=== PATIENT | male | born 1940 | race Asian ===

== ENCOUNTER 2016-02-21 13:47 | Inpatient (IN) | payer OTHER ==
[~2016-02-21] VITALS: Ht 182.9 cm; Wt 81.6 kg
[~2016-02-21 13:47] MED LIST: ALBUTEROL0.09 MG/A1 INH; ALLERGY10 MG PO; B12 1MG PE1000 MCG/M IM; BACTRIM 400 MG-1 TAB PO; PREDNISONE 20MG20 MG PO; TESSALON PERLE100 MG PO; TYLENOL500 MG PO; ZITHROMAX Z-PA250 M1 PO
--- NOTE | 2016-02-21 14:02 | ED HEADACHE COMPLAINT ---
History of Present Illness General Chief Complaint: Dizziness Stated Complaint: DIZZY,BLURRY VISION Source: patient, family, old records, seat covers trimmer Exam Limitations: language barrier Vital Signs & Intake/Output Vital Signs & Intake/Output Vital Signs Date Time Temp Pulse Resp B/P Pulse O2 O2 Flow FiO2 Ox Delivery Rate 02/22 0827 97.5 58 18 120/80 97 Room Air 02/21 2314 98.2 62 18 110/58 96 Room Air 02/21 1538 98.1 62 20 116/74 96 Room Air ED Intake and Output 02/22 0000 02/21 1200 Intake Total 1180 60 Output Total Balance 1180 60 Intake, IV 10 Intake, Oral 1180 50 Allergies Coded Allergies: Penicillins (DIZZY, VOMITING 02/21/16) aspirin (GI UPSET 02/21/16) Triage Note: 75 Y/O MALE C/O INTERMITTENT HEADACHE, "PRESSURE", X 3 DAYS. STATES IT FEELS LIKE SOMEONE IS "MASSAGING" HIS HEAD. DENIES OTHER COMPLAINTS. STATES HE HAS HAD PERIODS OF "SWEATING" IN ARMS AND LEGS WELL. SPEAKING CLEARLY WITH NO DEFICIT OR DISTRESS NOTED. Triage Nurses Notes Reviewed? yes Onset: Abrupt Duration: day(s): (3), intermittent HPI: 75-year-old gentleman presents emergency room complaining of a three-day history of intermittent generalized headache described as a pressure associated with room spinning dizziness. He has not taken anything for his headache and denies any symptoms at this time. The pain and episodes of this month randomly is not worse with exertion or rest. He states that his vision has been blurry during the episodes however denies any episodes of vision loss. No nausea vomiting difficulty speaking he denies any weakness in his arms or legs no numbness or tingling. There's been no change in his mental status per family. Denies any associated chest pain palpitation shortness breath abdominal pain. (AZRA RYAN,KAYLI) Reconcile Medications Atorvastatin Calcium 40 MG TABLET 1 TAB PO DAILY heart health Clopidogrel Bisulfate (Plavix) 75 MG TABLET 1 TAB PO DAILY heart health Meclizine HCl 25 MG TABLET 1 TAB PO TID PRN VERTIGO Naproxen 500 MG TABLET 1 TAB PO BID PAIN (Reported) Pantoprazole Sodium 40 MG TABLET.DR 1 TAB PO DAILY GERD (Reported) Prednisone 20 MG TAB 2 TAB PO DAILY BRONCHITIS (DONALD JIMENEZ,FIDELINA) Past History Travel History Traveled to [place] past 21 day No Medical History Any Pertinent Medical History? 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 No (KAYLI ACKERMAN) Review of Systems Review of Systems Constitutional: Reports: see HPI. All Other Systems: Reviewed and Negative Comments Review of systems: See HPI, All other systems negative. Constitutional, no chills no fever, no malaise HEENT: No visual changes no sore throat no congestion, no ear pain Cardiovascular: No chest pain , no palpitation , no orthopnea Skin, no jaundice no rashes, no change in skin Respiratory: No dyspnea no cough no sputum GI: No nausea no vomiting, no diarrhea, : No dysuria No hematuria, Muscle skeletal: No joint pain, no joint swelling, no back pain, no neck pain, Neurologic: No numbness no confusion, headache Psych: No stress no anxiety no depression,. Heme/endocrine: No bruising no bleeding Immunology: No lymphadenopathy (KAYLI ACKERMAN) Physical Exam Physical Exam General Appearance: well developed/nourished, no apparent distress, alert, awake , comfortable Psychiatric: awake, alert, oriented x 3 Cranial Nerves: normal hearing, normal speech, PERRL Coordination/Gait: normal finger to nose, normal gait Motor/Sensory: no motor/sensory deficits Reflexes: 2+: tricep (R), tricep (L). Comments: Well-developed well-nourished person in no acute distress HEENT: Normal EENT exam; PERRL, EOMI, HEAD is atraumatic. moist mucous membranes. Neck: Supple, no bruit, normal range of motion Back: Nontender, no CVA tenderness. Full range of motion Cardiovascular: Regular rate and rhythms no murmurs rubs Respiratory: Chest nontender.There were no bony deformities, no asymmetry. No respiratory distress. Patient speaking in full complete sentences. Breath sounds clear to auscultation bilaterally: NO W/R/R Abdomen: Soft, nontender nondistended, no appreciable organomegaly. Normal bowel sounds. No rebound/guarding, Extremity: No edema, full range of motion of extremities Neuro: Alert oriented x3, motor sensory normal, cranial nerves II through XII grossly intact. There were no obvious focal neurologic abnormalities. Skin: No appreciable rash on exposed skin, skin is warm and dry. Psych: Mood and affect is normal, memory and judgment is normal. Core Measures Severe Sepsis Present: No Septic Shock Present: No (KAYLI ACKERMAN) Progress Differential Diagnosis: carotid dissection, encephalitis, IC mass/tumor, intracranial Hem., meningitis, migraine MOORE, musculoskeletal pain, subarach. Hem. , tension MOORE, vertigo, electrolyte abnormality Plan of Care: Orders Procedure Date/time Status Change service to 02/22 0953 Active Patient Data 02/22 0937 Active THYROID STIMULATING HORMONE 02/22 0650 Complete FREE T4 02/22 0650 Complete MAGNESIUM 02/22 06 Complete CBC WITHOUT DIFFERENTIAL 02/22 06 Complete BASIC ELECTROLYTES PLUS BUN&CR 02/22 0600 Complete Change service to 02/22 UNK Active Lab Add-on Test 02/22 UNK Active Telemetry/Full Stack Engineer 02/22 UNK Active MRI-HEAD W & W/O ALIVIA 02/22 UNK Active Laboratory Tests 02/23/16 0650: Anion Gap 10, Estimated GFR > 60, BUN/Creatinine Ratio 17.8, Magnesium 1.8, TSH 2.890, Free T4 1.34, CBC w Diff NO MAN DIFF REQ, RBC 4.47 L, MCV 90.7, MCH 30.8 , RDW 14.4, MPV 8.2, Gran % 60.3, Lymphocytes % 29.4, Monocytes % 7.7, Eosinophils % 2.0, Basophils % 0.6, Absolute Granulocytes 3.3, Absolute Lymphocytes 1.6, Absolute Monocytes 0.4, Absolute Eosinophils 0.1, Absolute Basophils 0, PUBS MCHC 33.9 Labs ordered CAT scan ordered old records reviewed. Discussed with the patient his CAT scan results. Swallow eval was performed by me. The patient tolerated and passed exam well without any difficulties. I answered all of the patient and his family's questions CASE D/W DR REINA WILL ADMIT TO TELE, CALL PLACED TO NEURO (KAYLI ACKERMAN) Diagnostic Imaging: Viewed by Me: CT Scan. Discussed w/RAD: CT Scan. Radiology Impression: PATIENT: ADELE MARTINEZ PRESENT AGE: 75 PATIENT ACCOUNT NO: [id number] : 41 LOCATION: [facility] ORDERING PHYSICIAN: KAYLI RYAN SERVICE DATE: 02/21/16 EXAM TYPE: CAT - CT HEAD WO IV CONTRAST EXAMINATION: CT HEAD WITHOUT CONTRAST CLINICAL INFORMATION: Dizziness and headache. COMPARISON: Noncontrast head CT 02/06/2014. TECHNIQUE: Contiguous axial imaging was performed from the skull base to vertex without intravenous administration of contrast. DLP: 529 mGy-cm. FINDINGS: Noncontrast CT imaging of the brain is notable for a focal region of hypoattenuation within the midbrain measuring approximately 1.0 x 1.2 cm in AP and transverse dimensions respectively (series 2, image 17). There is no acute intracranial hemorrhage, mass or mass effect or abnormal extra-axial fluid collections. The density within the dural venous sinuses is within normal limits. The ventricles are normal in size, without hydrocephalus. The basilar cisterns are patent. No acute calvarial abnormality is identified. Soft tissues appear unremarkable. The imaged paranasal sinuses and mastoid air cells are well aerated. IMPRESSION: A 1.0 x 1.2 cm focal region of hypoattenuation within the midbrain, suspicious for age-indeterminate ischemia. Otherwise, no acute intracranial hemorrhage, mass or mass effect or abnormal extra-axial fluid collections. This critical result was discussed with Dr. Kayli Prado at 3:21 PM on 02/21/2016 and it was ascertained that the content and urgency of the report was understood at the time of direct communication. DICTATED BY: LAVELL PEDERSEN MD DATE/TIME DICTATED:02/21/161513 COMBINER OPERATOR:AMANDO DATE/TIME TRANSCRIBED:02/21/161513 CONFIDENTIAL, DO NOT COPY WITHOUT APPROPRIATE AUTHORIZATION. <Electronically signed in Other Vendor System> SIGNED BY: LAVELL PEDERSEN MD 02/21/16 1532 Initial ED EKG: normal intervals, normal p-waves, normal QRS complex, normal sinus rhythm (70) Prior EKG: unchanged (01/2014) (AZRA RYAN,KAYLI) Departure Departure Time of Disposition: 1547 Disposition: STILL A PATIENT Condition: Stable Clinical Impression Primary Impression: CVA (cerebral vascular accident) Referrals: [employer]WORK SECURITY ARCHITECT,ANGIE (PCP/Family) Referred to [facility] as new patient No Departure Forms: Customer Survey General Discharge Information Admission Note Spoke With: ELLIOT REINA M.D Documentation of Exam: Documentation of any treatments & extenuating circumstances including Concerns Regarding Discharge (functional status, medication knowledge or non-compliance, living conditions, etc.) that warrant an admission rather than observation MRI neurology consult trend labs. Premature discharge ready medically harmful (KAYLI ACKERMAN) Departure Prescriptions: Current Visit Scripts Atorvastatin Calcium 1 TAB PO DAILY #30 Clopidogrel Bisulfate (Plavix) 1 TAB PO DAILY #30 Meclizine HCl 1 TAB PO TID PRN VERTIGO #30 PA/ORDER DESK CLERK Co-Sign Statement Statement: ED Attending supervision documentation- [X] I saw and evaluated the patient. I have also reviewed all the pertinent lab results and diagnostic results. I agree with the findings and the plan of care as documented in the PA's/ORDER DESK CLERK's documentation. [X] I have reviewed the ED Record and agree with the PA's/ORDER DESK CLERK's documentation. [] Additions or exceptions (if any) to the PAs/ORDER DESK CLERK's note and plan are summarized below: [] (DONALD JIMENEZ,FIDELINA)
[2016-02-21 14:53] LABS: ABSOLUTE BASOPHIL COUNT 0 /CUMM (0.0-0.2); ABSOLUTE EOSINOPHIL COUNT 0.1 /CUMM (0.0-0.7); ABSOLUTE LYMPH COUNT 1.4 /CUMM (1.2-3.4); ABSOLUTE MONOCYTE COUNT 0.3 /CUMM (0.10-0.60); BASOPHIL % 0.3 % (0.0-2.0); EOSINOPHIL % 1.4 % (0-5); HEMATOCRIT 39.8 % (42-52); MEAN CORPUSCULAR HGB 30.9 PG (27.0-31.0); MEAN CORPUSCULAR HGB CONC 33.8 G/DL (33.0-37.0); MEAN CORPUSCULAR VOLUME 91.4 FL (80.0-94.0); MEAN PLATELET VOLUME 7.8 FL (7.4-10.4); PLATELET COUNT 223 /CUMM (130-400); RBC DISTRIBUTION WIDTH 14.3 % (11.5-14.5); RED BLOOD CELL CT 4.36 /CUMM (4.70-6.10); WHITE BLOOD CELL COUNT 5.8 /CUMM (4.8-10.8)
[2016-02-21] MEDS ORDERED: MECLIZINE HCL25 MG PO (15:08)
--- NOTE | 2016-02-21 15:32 | CT SCAN REPORT ---
EXAMINATION: CT HEAD WITHOUT CONTRAST CLINICAL INFORMATION: Dizziness and headache. COMPARISON: Noncontrast head CT 02/06/2014. TECHNIQUE: Contiguous axial imaging was performed from the skull base to vertex without intravenous administration of contrast. DLP: 529 mGy-cm. FINDINGS: Noncontrast CT imaging of the brain is notable for a focal region of hypoattenuation within the midbrain measuring approximately 1.0 x 1.2 cm in AP and transverse dimensions respectively (series 2, image 17). There is no acute intracranial hemorrhage, mass or mass effect or abnormal extra-axial fluid collections. The density within the dural venous sinuses is within normal limits. The ventricles are normal in size, without hydrocephalus. The basilar cisterns are patent. No acute calvarial abnormality is identified. Soft tissues appear unremarkable. The imaged paranasal sinuses and mastoid air cells are well aerated. IMPRESSION: A 1.0 x 1.2 cm focal region of hypoattenuation within the midbrain, suspicious for age-indeterminate ischemia. Otherwise, no acute intracranial hemorrhage, mass or mass effect or abnormal extra-axial fluid collections. This critical result was discussed with Dr. Randy Prado at 3:21 PM on 02/21/2016 and it was ascertained that the content and urgency of the report was understood at the time of direct communication.
[2016-02-21] MEDS ORDERED: NAPROXEN500 M2 PO (16:46)
[2016-02-21] MEDS ORDERED: PANTOPRAZOLE SO40 M1 PO (16:46)
--- NOTE | 2016-02-21 17:04 | History & Physical ---
HUGO ROJAS 02/21/16 1703: General Information and HPI MD Statement: I have seen and personally examined ADELE MARTINEZ and documented this H&P. The patient is a 75 year old M who presented with a patient stated chief complaint of dizziness, blurred vision and intermittent headache for 3 days Source of Information: patient, family Exam Limitations: no limitations History of Present Illness: This is a 75-year-old gentleman with past medical history significant for paroxysmal atrial fibrillation, dyslipidemia, hyperthyroidism, GERD presented to the [facility] emergency department with chief complaint of dizziness, blurred vision, intermittent headache for 3 days. According to the patient, he started having intermittent headaches for 3 days, mostly occipital region, 8/10, tingling like, nonradiating. He didn't take any medications for headache at home. Denied any migraine history in the past, weakness, sensory changes, numbness, gait changes, swallowing changes. He does report dizziness for 3 days. He feels like room is spinning around him. Not associated with any nausea, vomiting, sweating, loss of consciousness, syncopal episodes. Denied any focal neurological deficits. No loss of balance. No hearing difficulty or ringing sensation. No blackout episodes. Ofnote dizziness is associated with blurred vision. Denied any fever, chills, chest pain, racing of heart, cough, sputum production, nausea, vomiting, abdominal pain, change in bladder or bowel habits. He denied any smoking history, according to, illicit drug abuse. Denied any history of stroke or heart attack in the past. No significant family history. He follows Dr. Rutledge's primary care doctor and it investment/portfolio manager at [facility]. Of note he was admitted at [facility] in 2007 for abdominal pain. He was found to be in atrial fibrillation, he was given metoprolol and anticoagulation and later medications were discontinued by the it investment/portfolio manager once he was in sinus rhythm. Not on any rate controlling agents and not on anticoagulants Allergies/Medications Allergies: Coded Allergies: Penicillins (DIZZY, VOMITING 02/21/16) aspirin (GI UPSET 02/21/16) Home Med list Naproxen 500 MG TABLET 1 TAB PO BID PAIN (Reported) Pantoprazole Sodium 40 MG TABLET.DR 1 TAB PO DAILY GERD (Reported) Prednisone 20 MG TAB 2 TAB PO DAILY BRONCHITIS Compliance With Home Meds: GOOD Past History Travel History Traveled to [place] past 21 day No Medical History Neurological: NONE EENT: NONE Cardiovascular: DIZZINESS Respiratory: NONE Gastrointestinal: NONE Hepatic: NONE Renal: NONE Musculoskeletal: NONE Psychiatric: NONE Endocrine: NONE Blood Disorders: ELEVATED CHOLESTEROL Cancer(s): NONE 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 EENTM: Reports: blurred vision. Denies: double vision, visual changes, ear pain, hearing changes. Cardiovascular: Denies: chest pain, edema, orthopena, palpitations, peripheral edema, syncope. Respiratory: Denies: cough, hemoptysis, orthopnea, short of breath, sputum production, stridor, wheezing. GI: Denies: abdominal pain, constipation, diarrhea, changes in stool, vomiting. Genitourinary: Denies: frequency, hematuria, hesitation. Musculoskeletal: Denies: back pain, joint pain. Neurological/Psychological: Reports: headache. Denies: anxiety, ataxia, confusion, depressed, dementia, emotional problems, numbness, tingling, tremors, weakness. Exam & Diagnostic Data Last 24 Hrs of Vital Signs/I&O Vital Signs Date Time Temp Pulse Resp B/P Pulse O2 O2 Flow FiO2 Ox Delivery Rate 02/20 1730 98.1 63 20 158/86 99 Room Air 02/20 1657 72 18 144/80 97 Room Air 02/20 1547 66 16 170/84 100 Room Air 02/20 1354 97.6 82 18 149/95 98 Room Air Intake & Output 02/20 1600 02/20 0800 02/20 0000 Intake Total 0 Output Total Balance 0 Intake, Oral 0 Patient 81.647 kg Weight Physical Exam General Appearance Alert, Oriented X3, Cooperative, No Acute Distress Skin No Rashes, No Breakdown HEENT Atraumatic, PERRLA, EOMI, Mucous Membr. moist/pink Neck Supple, No JVD Lymphatic Cervical nl Cardiovascular Regular Rate, Normal S1, Normal S2, No Murmurs Lungs Clear to Auscultation, Normal Air Movement Abdomen Normal Bowel Sounds, Soft, No Tenderness Neurological Normal Gait, Normal Speech, Strength at 5/5 X4 Ext, Normal Tone, Sensation Intact, Cranial Nerves 3-12 NL, Reflexes 2+ Extremities No Clubbing, No Cyanosis, No Edema Vascular Normal Pulses Last 24 Hrs of Labs/Johnie: Laboratory Tests 02/21/16 1435: Anion Gap 11, Estimated GFR > 60, BUN/Creatinine Ratio 18.8, Glucose 122 H, Calcium 9.2, Total Bilirubin 0.8, AST 18, ALT 27, Alkaline Phosphatase 49, Troponin I < 0.01, Total Protein 7.1, Albumin 4.1, Globulin 3.0, Albumin/ Globulin Ratio 1.4, CBC w Diff NO MAN DIFF REQ, RBC 4.36 L, MCV 91.4, MCH 30.9, RDW 14.3, MPV 7.8, Gran % 69.0, Lymphocytes % 24.4, Monocytes % 4.9, Eosinophils % 1.4, Basophils % 0.3, Absolute Granulocytes 4.0, Absolute Lymphocytes 1.4, Absolute Monocytes 0.3, Absolute Eosinophils 0.1, Absolute Basophils 0, PUBS MCHC 33.8 Diagnostic Data EKG Results Sinus rhythm, rate 63, premature atrial complexes, QTC 394, no acute ST-T wave changes Other Results headc ct IMPRESSION: A 1.0 x 1.2 cm focal region of hypoattenuation within the midbrain, suspicious for age-indeterminate ischemia. Otherwise, no acute intracranial hemorrhage, mass or mass effect or abnormal extra-axial fluid collections. Assessment/Plan Assessment: This is a 75-year-old gentleman with past medical history significant for paroxysmal atrial fibrillation, dyslipidemia, hyperthyroidism, GERD presented to the [facility] emergency department with chief complaint of dizziness, blurred vision, intermittent headache for 3 days. Vitals on admission afebrile, heart rate 82, respiratory rate 18, blood pressure 149/95, saturating at 98% on room air. Pertinent labs CBC normal, BEP normal, troponins negative on admission. EKG sinus rhythm, rate 60, PACs, QTC 394, no ST-T wave changes head ct IMPRESSION: A 1.0 x 1.2 cm focal region of hypoattenuation within the midbrain, suspicious for age-indeterminate ischemia. Otherwise, no acute intracranial hemorrhage, mass or mass effect or abnormal extra-axial fluid collections. Problem list 1. Dizziness 2. Headache 3. GERD 4. History of paroxysmal atrial fibrillation Dizziness and headache Patient presented to emergency department with generalized headache mostly occipital for 3 days. He reported ongoing dizziness for 3 days associated with spinning sensation of the room. Denied loss of consciousness, syncopal episodes , seizures. CAT scan head showed midbrain ischemia. No acute intracranial hemorrhage or mass. Denied any focal neurologic deficits on examination * Admitted to telemetry for continuous monitoring * Monitor vitals closely * Maintain oxygen saturation above 92% * Frequent neuro checks * will Rule out TIA/stroke * Neurology was consulted * Patient was started on baby aspirin and statin therapy * Meclizine as necessary for dizziness * Fall precautions * Passed bedside swallow evaluation * Will follow neurology recommendation * HbA1c follow-up * May benefit from MRA brain * Continuous telemetry monitoring for any arrhythmias. * First set of troponin and EKG were negative * Serial EKG and troponins * Carotid Doppler ultrasound * Follow-up echocardiogram GERD Patient is on pantoprazole at home Patient is on naproxen Naproxen was discontinued here Paroxysmal atrial fibrillation Patient is in sinus rhythm Not on any home medications Not on anticoagulants Full code DVT prophylaxis with subcutaneous heparin Regular diet As Ranked By This Provider Problem List: 1. CVA (cerebral vascular accident) Core Measures/Miscellaneous Acute Coronary Syndrome ACS Diagnosis: No Cerebrovascular Accident CVA/TIA Diagnosis: No Congestive Heart Failure CHF Diagnosis: No Venous Thromboembolism VTE Risk Factors: Acute medical illness, Age > 40, No Risk Factors VTE Prophylaxis Ordered Inpt: Pharm- Heparin No Mech VTE prophylaxis d/t: No contraindications No VTE Pharm Prophylaxis d/t: No contraindications VTE Diagnosis: No VTE Type: NONE VTE Confirmed by (Test): NONE Severe Sepsis Severe Sepsis Present: No Septic Shock Septic Shock Present: No Miscellaneous Documentation Attending Case Discussed With: ELLIOT REINA M.D Primary Care Physician: ANGIE GARCIA APRN Patient sees these Specialists cardiology Level of Patient Care: Telemetry ELLIOT REINA MD 02/21/16 1734: Attending Review Statement Attending Statement Attending MD Statement: examined this patient, discuss w/resident/PA/FLAG CAR DRIVER, agreed w/resident/PA/FLAG CAR DRIVER, reviewed EMR data (avail), discussed with nursing, amended to note Attending Assessment/Plan: 75-year-old male with history of paroxysmal atrial fibrillation, thyroiditis, GERD presents to the emergency room with complaint of dizziness going on for the past 3 days. Symptoms are characterized as spinning sensation of his surroundings. Denies any hearing difficulty. Denies ringing sensation in the ears. Denies any falls. Symptoms began associated with headache so he came to the emergency room for evaluation. He is found hemodynamically stable. He had no deficits on arrival. CT of the head raises concern for an area of ischemia. She was referred to the inpatient service for further evaluation. On my examination I find no focal neurologic deficits. He has no nystagmus. Problems: 1. Dizziness and headache with CT scanning suggestive of midbrain ischemia 2. GERD 3. History of paroxysmal atrial fibrillation. He has been in sinus rhythm and is not on anticoagulation. Plan: -Recommend monitoring on the telemetry service. -If no arrhythmias on telemetry at the time of discharge would recommend implantable air sampling and monitoring as patient will benefit from anticoagulation therapy if his atrial fibrillation is again noted. -Obtain carotid Dopplers and echocardiogram. -Antiplatelet therapy with aspirin. Start patient on statin therapy. Check fasting lipid panel. -Continue meclizine. -Discontinue naproxen and recommend pain management with non NSAID therapy. -Neurology consultation. Patient may benefit from MRI of the brain for further evaluation of the area of ischemia noted on CT imaging. -DVT prophylaxis with heparin subcutaneous. MARIA DOLORES JIMENEZ,[facility] 02/21/16 1826: Resident Review Statement Resident Statement: examined this patient, discussed with equine internship, agreed with equine internship, discussed with family, reviewed EMR data (avail), discussed with nursing , discussed with case mgmt, reviewed images, amended to note Other Findings: This Is a 75-year-old man with a history of atrial fibrillation, thyroiditis and GERD as well as chronic pain on chronic therapy with naproxen who presented with complaints of dizziness and headache and found to have a CT that may be suggestive of midbrain ischemia. Monitor for 24 hours on continuous cardiac telemetry with neuro checks. We will obtain echocardiogram and carotid ultrasound, and expert consultation with neurology. Discontinue NSAIDs. DVT prophylaxis with Alps
[2016-02-21 17:30] VITALS: BP 158/86
[2016-02-22 00:27] VITALS: BP 100/60
[2016-02-22 08:00] VITALS: BP 110/60
--- NOTE | 2016-02-22 11:18 | PN- Att Addend ---
Attending Addendum Attending Brief Note Patient seen and examined. Resting comfortably not in acute distress. No events overnight on telemetry. He did have sinus bradycardia as low as 46 while asleep. Heart rate improved when awake. Patient reports feeling better this morning. He reports that his dizziness has markedly improved and he has mild headache. Denies any focal neurologic deficits. Vital Signs Date Time Temp Pulse Resp B/P Pulse O2 O2 Flow FiO2 Ox Delivery Rate 02/21 0800 98.0 54 20 110/60 95 Room Air 02/21 0027 99.0 56 20 100/60 96 Room Air 02/20 2153 Room Air 02/20 1730 98.1 63 20 158/86 99 Room Air 02/20 1657 72 18 144/80 97 Room Air 02/20 1547 66 16 170/84 100 Room Air 02/20 1354 97.6 82 18 149/95 98 Room Air Gen. appearance: Not in acute distress HEENT: Pupil equal and reactive. Extraocular muscles intact. No nystagmus. Heart: S1-S2 regular with no added sounds. Abdomen: Soft, nontender with normal bowel sounds Lungs: Good entry bilaterally with no added sounds. Extremities: No pedal edema Neurologic: No gross focal neurologic deficits Problems: 1. Dizziness and headache with CT scanning suggestive of midbrain ischemia 2. GERD 3. History of paroxysmal atrial fibrillation. He has been in sinus rhythm and is not on anticoagulation. Plan: -Follow-up with the neurology service regarding need for further neuroimaging. -Cardiology service referral for implantable case monitor. -Follow-up echocardiogram and carotid Dopplers. -Continue antiplatelet therapy restarting and statin lowering therapy -Continue meclizine as needed. Patient has not required any doses since admission. -Discharge planning once cleared by the neurology service. -DVT prophylaxis with subcutaneous heparin.
[2016-02-22 15:38] VITALS: BP 116/74
--- NOTE | 2016-02-22 15:49 | ULTRASOUND REPORT ---
EXAMINATION: US DUPLEX CAROTID AND VERTEBRAL CLINICAL INFORMATION: CVA. COMPARISON: None. TECHNIQUE: Real-time ultrasound and Doppler techniques (integrating B-mode 2D vascular images, Doppler spectral analysis and color flow Doppler imaging) were utilized to interrogate the extracranial carotid and vertebral arteries bilaterally. The degree of stenosis determined by criteria similar to NASCET. FINDINGS: The right common carotid artery is patent. There is mixed calcified and noncalcified plaque seen in the right carotid bulb and proximal ICA. Right ICA peak systolic velocity is 84 cm/s, end-diastolic velocity 23 cm/s suggestive of 0-49% right ICA stenosis. The right ECA is patent. Antegrade flow is seen in the right vertebral artery. The left common carotid artery is patent. There is heterogeneous calcified and noncalcified plaque seen in the left carotid bulb. Left ICA peak systolic velocity is 82 cm/s, end-diastolic velocity 29 cm/s suggestive of 0-49% left ICA stenosis. The left ECA is patent. Antegrade flow is seen in the left vertebral artery. IMPRESSION: 0-49% ICA stenosis bilaterally.
--- NOTE | 2016-02-22 17:07 | Cons- Neurology ---
General Information and HPI Consulting Request Date of Consult: 02/22/16 Requested By: ELLIOT REINA M.D Reason for Consult: ?TIA/CVA Source of Information: patient, family, EMR Exam Limitations: language barrier History of Present Illness: 75-year-old man who states he had several episodes of headache dizziness and blurred vision, along with tingling of the hands and feet, lasting several minutes, and several consecutive days. Gait was not impaired. No associated chest pain or palpitations. Remote history of paroxysmal atrial fibrillation back in 2007 per records. Briefly on anticoagulation at that time. Currently just takes a proton pump inhibitor and Naprosyn for arthralgias of the hands and feet at home. Is followed by a clinician at the [facility] clinic. This morning he had a dull headache which was relieved with Tylenol. Otherwise he has been feeling well walking around the hospital unit feeding himself and denying swallowing difficulties Allergies/Medications Allergies: Coded Allergies: Penicillins (DIZZY, VOMITING 02/21/16) aspirin (GI UPSET 02/21/16) Home Med List: Naproxen 500 MG TABLET 1 TAB PO BID PAIN (Reported) Pantoprazole Sodium 40 MG TABLET.DR 1 TAB PO DAILY GERD (Reported) Prednisone 20 MG TAB 2 TAB PO DAILY BRONCHITIS Current Medications: Current Medications Sig/Lissett Start time Last Medication Dose Route Stop Time Status Admin Acetaminophen 650 MG Q4P PRN 02/21 0915 AC 02/21 PO 0940 Aspirin 81 MG DAILY 02/20 2108 AC 02/21 PO 0757 Atorvastatin Calcium 40 MG DAILY@1700 02/20 2109 AC 02/21 PO 1556 Heparin Sodium 5,000 UNIT Q8 02/21 1400 AC 02/21 (Porcine) SC 1403 Magnesium Oxide 400 MG ONE ONE 02/21 1600 DC 02/21 PO 02/21 1601 1556 Meclizine HCl 25 MG TID PRN 02/20 1700 AC PO Review of Systems Review of Systems: REVIEW OF SYSTEMS: (-) = negative / normal blank = not discussed Neurologic: see HPI Eyes: see HPI ENT: (-) Constitutional: (-) CV: (-) Respiratory: (-) /Renal: (-) Musculoskeletal: Arthralgias of hands and feet Skin: (-) Psychiatric: (-) Heme: (-) GI: (-) Allergy/Immune: (-) Endocrine: (-) Other: (-) Past History Travel History Traveled to [place] past 21 day No Medical History Blood Transfusion Hx: No Neurological: NONE EENT: NONE Cardiovascular: AFIB, hyperlipidemia, DIZZINESS TACHYCARDIA Respiratory: NONE Gastrointestinal: NONE Hepatic: NONE Renal: NONE Musculoskeletal: NONE Psychiatric: NONE Endocrine: NONE Blood Disorders: NONE Cancer(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 Home Smoking Status: Never Smoked ETOH Use: denies use Illicit Drug Use: denies illicit drug use Employment History Employment: Employed Profession/Employer: works at [employer] in [place] Exam & Diagnostic Data Vital Signs and I&O Vital Signs Date Time Temp Pulse Resp B/P Pulse O2 O2 Flow FiO2 Ox Delivery Rate 02/21 1538 98.1 62 20 116/74 96 Room Air 02/21 0800 98.0 54 20 110/60 95 Room Air 02/21 0027 99.0 56 20 100/60 96 Room Air 02/20 2153 Room Air 02/20 1730 98.1 63 20 158/86 99 Room Air Intake & Output 02/21 1600 02/21 0800 02/21 0000 Intake Total 480 60 Output Total Balance 480 60 Intake, IV 10 Intake, Oral 480 50 Patient 180 lb Weight Physical Exam: PHYSICAL EXAMINATION: nl = normal NT or blank = not tested GENERAL Appearance: nl Head: nl Eyes: nl ENT: nl Neck: nl Carotids: nl Lungs: nl Heart: nl Extremities: nl Spine: nl NEUROLOGIC MENTAL STATUS Level of consciousness: nl Orientation: nl Attention / Concentration: nl Memory: nl Fund of Knowledge: nl Speech / Language: nl NEUROLOGIC CRANIAL NERVES I: Olfaction: NT II: Optic nerves: nl Visual mason: nl III: Pupils: nl Levator palpebrae: nl III, IV, : Ocular alignment: nl Extraocular motility: nl Pursuits/ saccades: nl V: Facial sensation: nl Masseter/Pterygoids: nl VII: Facial Motor: nl VIII: Hearing (finger rub): nl IX, X: Uvula and palate: nl XI: SCM, Upper trap.: nl XII: Tongue: nl MOTOR / NEUROMUSCULAR Bulk: nl Tone: nl Strength: nl Rapid alternating movements: nl Fine motor movements: nl Abnormal / involuntary movements: none CEREBELLAR / COORDINATION: intact SENSATION: intact to light touch, pin, vibration, joint position DTR's symmetrically trace to 1+ SOUZA'S: (-) PLANTARS: flexor GAIT: nl Last 48 Hours of Lab Results: Laboratory Tests 02/21 02/20 0600 1435 Chemistry Sodium (137 - 145 mmol/L) 138 138 Potassium (3.5 - 5.1 mmol/L) 4.3 4.5 Chloride (98 - 107 mmol/L) 102 98 Carbon Dioxide (22 - 30 mmol/L) 26 29 Anion Gap (5 - 16) 10 11 BUN (9 - 20 mg/dL) 15 15 Creatinine (0.7 - 1.2 mg/dL) 0.8 0.8 Estimated GFR (>60 ml/min) > 60 > 60 BUN/Creatinine Ratio (7 - 25 %) 18.8 18.8 Glucose (65 - 99 mg/dL) 122 H Calcium (8.4 - 10.2 mg/dL) 9.2 Magnesium (1.6 - 2.3 mg/dL) 1.9 Total Bilirubin (0.2 - 1.3 mg/dL) 0.8 AST (17 - 59 U/L) 18 ALT (21 - 72 U/L) 27 Alkaline Phosphatase (< 127 U/L) 49 Troponin I (<0.11 ng/ml) < 0.01 Total Protein (6.3 - 8.2 g/dL) 7.1 Albumin (3.5 - 5.0 g/dL) 4.1 Globulin (1.9 - 4.2 gm/dL) 3.0 Albumin/Globulin Ratio (1.1 - 2.2 %) 1.4 Triglycerides (<150 mg/dL) 144 Cholesterol (< 200 MG/DL) 191 LDL Cholesterol, Calc (65 - 129 mg/dL) 127 HDL Cholesterol (40 - 60 mg/dL) 36 L Cholesterol/HDL Ratio (0.00 - 4.88 %) 5 H Hematology CBC w Diff NO MAN DIFF REQ WBC (4.8 - 10.8 /CUMM) 5.8 RBC (4.70 - 6.10 /CUMM) 4.36 L Hgb (14.0 - 18.0 G/DL) 13.4 L Hct (42 - 52 %) 39.8 L MCV (80.0 - 94.0 FL) 91.4 MCH (27.0 - 31.0 PG) 30.9 RDW (11.5 - 14.5 %) 14.3 Plt Count (130 - 400 /CUMM) 223 MPV (7.4 - 10.4 FL) 7.8 Gran % (42.2 - 75.2 %) 69.0 Lymphocytes % (20.5 - 51.1 %) 24.4 Monocytes % (1.7 - 9.3 %) 4.9 Eosinophils % (0 - 5 %) 1.4 Basophils % (0.0 - 2.0 %) 0.3 Absolute Granulocytes (1.4 - 6.5 /CUMM) 4.0 Absolute Lymphocytes (1.2 - 3.4 /CUMM) 1.4 Absolute Monocytes (0.10 - 0.60 /CUMM) 0.3 Absolute Eosinophils (0.0 - 0.7 /CUMM) 0.1 Absolute Basophils (0.0 - 0.2 /CUMM) 0 PUBS MCHC (33.0 - 37.0 G/DL) 33.8 Imaging/Other Studies: Head CT 02-21-16 IMPRESSION: A 1.0 x 1.2 cm focal region of hypoattenuation within the midbrain, suspicious for age-indeterminate ischemia. Otherwise, no acute intracranial hemorrhage, mass or mass effect or abnormal extra-axial fluid collections. Car US 02-22-16 FINDINGS: The right common carotid artery is patent. There is mixed calcified and noncalcified plaque seen in the right carotid bulb and proximal ICA. Right ICA peak systolic velocity is 84 cm/s, end-diastolic velocity 23 cm/s suggestive of 0-49% right ICA stenosis. The right ECA is patent. Antegrade flow is seen in the right vertebral artery. The left common carotid artery is patent. There is heterogeneous calcified and noncalcified plaque seen in the left carotid bulb. Left ICA peak systolic velocity is 82 cm/s, end-diastolic velocity 29 cm/s suggestive of 0-49% left ICA stenosis. The left ECA is patent. Antegrade flow is seen in the left vertebral artery. IMPRESSION: 0-49% ICA stenosis bilaterally. Assessment/Plan Assessment: Posterior circulation TIA versus migrainous headache Normal neurologic exam at present speaks against mid brain pathology. CT scan of the posterior fossa is notorius for creating beam hardening artifact. I've been told that mobile brain MRI is not available here until February 23. Remote history of PAF Mildly elevated LDL Recommendations: Echocardiogram and cardiology consultation Statin and Plavix for now given history of aspirin intolerance No urgent need for brain MRI at this time, can be done as an outpatient or can be done more urgently if symptoms recur Please have the patient follow up at the [facility] neurology clinic with Randy Wiley MD Consult Acknowledgment - Thank you for your consult request.
[2016-02-22 23:14] VITALS: BP 110/58
--- NOTE | 2016-02-23 07:26 | PN- Housestaff ---
HUGO ROJAS 02/23/16 0726: Subjective Follow-up For: 1. Dizziness 2. Headache 3. GERD 4. History of paroxysmal atrial fibrillation Complaints: pain scale (0-10) Tele-Events Since Last Visit: Sinus bradycardia Sinus rhythm Rate 56-68 PAC No acute events noticed on telemetry monitoring overnight Subjective: Patient was seen and examined this morning. He was alert awake and oriented to time place and person. No acute events noticed overnight. He does report dizziness this morning. However no loss of consciousness no syncopal episodes. He reported intermittent headaches, which is there since admission. 3 over 5 fronto-occipital region, nonradiating. Denied any chest pain, racing of heart, short of breath, cough, weakness or sensory changes, gait changes. No nausea vomiting abdominal pain, change in bladder or bowel habits. Vitals were stable. Afebrile. Heart rate 62, respiratory rate 18, blood pressure 110/58, saturating at 96% on room air Review of Systems Constitutional: Denies: see HPI. Objective Last 24 Hrs of Vital Signs/I&O Vital Signs Date Time Temp Pulse Resp B/P Pulse O2 O2 Flow FiO2 Ox Delivery Rate 02/22 0827 97.5 58 18 120/80 97 Room Air 02/21 2314 98.2 62 18 110/58 96 Room Air 02/21 1538 98.1 62 20 116/74 96 Room Air Intake & Output 02/22 1600 02/22 0800 02/22 0000 Intake Total 240 700 Output Total Balance 240 700 Intake, Oral 240 700 Physical Exam General Appearance: Alert, Oriented X3, Cooperative, No Acute Distress Skin: No Rashes, No Breakdown HEENT: Atraumatic, Mucous Membr. moist/pink Neck: Supple, No JVD Lymphatic: Cervical nl Cardiovascular: Regular Rate, Normal S1, Normal S2, No Murmurs Lungs: Normal Air Movement Abdomen: Normal Bowel Sounds, Soft, No Tenderness Neurological: Normal Speech, Strength at 5/5 X4 Ext, Normal Tone, Sensation Intact, Reflexes 2+ Extremities: No Clubbing, No Cyanosis, No Edema Vascular: Normal Pulses Current Medications: Current Medications Sig/Lissett Start time Last Medication Dose Route Stop Time Status Admin Acetaminophen 1,300 MG .STK-MED ONE 02/22 2044 DC [place] 02/21 2045 Acetaminophen 650 MG Q4P PRN 02/21 914 AC 02/21 PO 205 Aspirin 81 MG DAILY 02/20 210 DC 02/21 PO 0757 Atorvastatin Calcium 40 MG DAILY@1700 02/20 2109 AC 02/21 PO 1556 Clopidogrel Bisulfate 75 MG DAILY 02/22 1000 AC 02/22 PO 1007 Heparin Sodium 5,000 UNIT Q8 02/21 1400 AC 02/22 (Porcine) SC 0558 Magnesium Oxide 400 MG ONE ONE 02/22 0915 DC 02/22 PO 02/22 0916 1007 Magnesium Oxide 400 MG ONE ONE 02/21 1600 DC 02/21 PO 02/21 1601 1556 Meclizine HCl 25 MG TID PRN 02/20 1700 AC 02/22 PO 1008 Last 24 Hrs of Lab/Johnie Results Last 24 Hrs of Labs/Mics: Laboratory Tests 02/23/16 0650: Anion Gap 10, Estimated GFR > 60, BUN/Creatinine Ratio 17.8, Magnesium 1.8, TSH 2.890, Free T4 1.34, CBC w Diff NO MAN DIFF REQ, RBC 4.47 L, MCV 90.7, MCH 30.8 , RDW 14.4, MPV 8.2, Gran % 60.3, Lymphocytes % 29.4, Monocytes % 7.7, Eosinophils % 2.0, Basophils % 0.6, Absolute Granulocytes 3.3, Absolute Lymphocytes 1.6, Absolute Monocytes 0.4, Absolute Eosinophils 0.1, Absolute Basophils 0, PUBS MCHC 33.9 Assessment/Plan Assessment: This is a 75-year-old gentleman with past medical history significant for paroxysmal atrial fibrillation, dyslipidemia, hyperthyroidism, GERD presented to the [facility] emergency department with chief complaint of dizziness, blurred vision, intermittent headache for 3 days. Vitals on admission afebrile, heart rate 82, respiratory rate 18, blood pressure 149/95, saturating at 98% on room air. Pertinent labs CBC normal, BEP normal, troponins negative on admission. EKG sinus rhythm, rate 60, PACs, QTC 394, no ST-T wave changes head ct IMPRESSION: A 1.0 x 1.2 cm focal region of hypoattenuation within the midbrain, suspicious for age-indeterminate ischemia. Otherwise, no acute intracranial hemorrhage, mass or mass effect or abnormal extra-axial fluid collections. Problem list 1. Dizziness 2. Headache 3. GERD 4. History of paroxysmal atrial fibrillation Dizziness and headache Patient presented to emergency department with generalized headache mostly occipital for 3 days. He reported ongoing dizziness for 3 days associated with spinning sensation of the room. Denied loss of consciousness, syncopal episodes , seizures. CAT scan head showed midbrain ischemia. No acute intracranial hemorrhage or mass. Denied any focal neurologic deficits on examination * Admitted to telemetry for continuous monitoring * Monitor vitals closely * Maintain oxygen saturation above 92% * Frequent neuro checks * Ruled out TIA/stroke * Neurology was consulted * Patient was started on plavix and statin therapy * History of aspirin intolerance- * Meclizine as necessary for dizziness * Fall precautions * Passed bedside swallow evaluation * Will follow neurology recommendation * HbA1c follow-up * May benefit from MRI brain * Continuous telemetry monitoring for any arrhythmias. 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 CVA (cerebral vascular accident) Pain Ratin Pain Location: headaches Pain Goal: Remain pain free Pain Plan: tylinol Tomorrow's Labs & Rationales: none PONCE JIMENEZ,VEGA 02/23/16 1012: Attending MD Review Statement Attending Statement Attending MD Statement: examined this patient, discuss w/resident/PA/END USER SUPPORT SPECIALIST, agreed w/resident/PA/END USER SUPPORT SPECIALIST, reviewed EMR data (avail), discussed with nursing Attending Assessment/Plan: Patient feels okay. Intermittently mildly dizzy but ambulating independently and not orthostatic. Appreciate neurology eval who feels that he is neurologically completely intact and that the CT was misread. I explained to the patient that he doesn't need the MRI. He does have a history of A. fib in the past and we have asked Dr. Rosen to see him and to follow up on the echo. If the echo is okay and he is cleared by cardiology and likely discharge with outpatient follow-up.
[2016-02-23] MEDS ORDERED: ATORVASTATIN CA40 M1 PO (07:39)
[2016-02-23] MEDS ORDERED: MECLIZINE HCL25 MG PO (07:39)
[2016-02-23] MEDS ORDERED: PLAVIX75 M1 PO (07:39)
--- NOTE | 2016-02-23 07:52 | Patient Discharge Instructions ---
Discharge Instructions General Discharge Information You were seen/treated for: Posterior circulation TIA versus migrainous headache Dizziness You had these procedures: none Watch for these problems: Dizziness Racing of heart Weakness Sensory changes Slurred speech Special Instructions: 1.Follow-up with primary care doctor in 1 week 2. Please have the follow up at the [facility] neurology clinic with Randy Wiley MD. 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 4. Started on statins and Plavix, history of aspirin intolerance 5. 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 in 1 week Diet Continue normal diet: Yes Activity Full Activity/No Limits: Yes Acute Coronary Syndrome Inclusion Criteria At DC or during hospital stay patient has or had the following: ACS DIAGNOSIS No Discharge Core Measures Meds if any: Prescribed or Continued at Discharge Meds if any: NOT Prescribed or Continued at Discharge Congestive Heart Failure Inclusion Criteria At DC or during hospital stay patient has or had the following: CHF DIAGNOSIS No Discharge Core Measures Meds if any: Prescribed or Continued at Discharge Meds if any: NOT Prescribed or Continued at Discharge Cerebrovascular accident Inclusion Criteria At DC or during hospital stay patient has or had the following: CVA/TIA Diagnosis No Discharge Core Measures Meds if any: Prescribed or Continued at Discharge Meds if any: NOT Prescribed or Continued at Discharge Venous thromboembolism Inclusion Criteria VTE Diagnosis No VTE Type NONE VTE Confirmed by (Test) NONE Discharge Core Measures - Per Current guidelines, there needs to be overlap - treatment for the first 5 days of Warfarin therapy. - If discharged on Warfarin prior to 5 days of - overlap therapy, the patient will need to be - assessed for post discharge needs including - *Post discharge parental anticoagulation - *Warfarin and/or parental anticoagulation education - *Follow up date to check INR post discharge At least 5 days overlap therapy as Inpatient No Meds if any: Prescribed or Continued at Discharge Note: Overlap Therapy is Warfarin and Anticoagulant Meds if any: NOT Prescribed or Continued at Discharge
[2016-02-23 08:08] LABS: ABSOLUTE BASOPHIL COUNT 0 /CUMM (0.0-0.2); ABSOLUTE EOSINOPHIL COUNT 0.1 /CUMM (0.0-0.7); ABSOLUTE GRANULOCYTE CT 3.3 /CUMM (1.4-6.5); ABSOLUTE LYMPH COUNT 1.6 /CUMM (1.2-3.4); ABSOLUTE MONOCYTE COUNT 0.4 /CUMM (0.10-0.60); BASOPHIL % 0.6 % (0.0-2.0); GRANULOCYTE % 60.3 % (42.2-75.2); HEMATOCRIT 40.5 % (42-52); MEAN CORPUSCULAR HGB 30.8 PG (27.0-31.0); MEAN CORPUSCULAR HGB CONC 33.9 G/DL (33.0-37.0); MEAN CORPUSCULAR VOLUME 90.7 FL (80.0-94.0); MEAN PLATELET VOLUME 8.2 FL (7.4-10.4); PLATELET COUNT 222 /CUMM (130-400); RBC DISTRIBUTION WIDTH 14.4 % (11.5-14.5); RED BLOOD CELL CT 4.47 /CUMM (4.70-6.10); WHITE BLOOD CELL COUNT 5.4 /CUMM (4.8-10.8)
[2016-02-23 08:27] VITALS: BP 120/80
[2016-02-23 15:30] VITALS: BP 118/68
--- NOTE | 2016-02-23 15:32 | Cons- Cardiology ---
General Information and HPI Consulting Request Date of Consult: 02/23/16 Requested By: PONCE JIMENEZ,VEGA Hall History of Present Illness: Neel is a 75 year old male with history of pericarditis and paroxysmal atrial fibrillation. He was admitted to [facility] after he reported complaints of a headache along with numbness and weakness in his hands bilaterally. He also reports that his speech was slow. This patient has noted intermittent chest discomfort that does not have any clear exertional component to it. He does not recall recent palpitations but does have some shortness of breath. Workup has included a head CT that showed a small midbrain lesion and a carotid ultrasound was negative for any significant flow limiting lesion. Allergies/Medications Allergies: Coded Allergies: Penicillins (DIZZY, VOMITING 02/21/16) aspirin (GI UPSET 02/21/16) Home Med List: Atorvastatin Calcium 40 MG TABLET 1 TAB PO DAILY heart health Clopidogrel Bisulfate (Plavix) 75 MG TABLET 1 TAB PO DAILY heart health Meclizine HCl 25 MG TABLET 1 TAB PO TID PRN VERTIGO Naproxen 500 MG TABLET 1 TAB PO BID PAIN (Reported) Pantoprazole Sodium 40 MG TABLET.DR 1 TAB PO DAILY GERD (Reported) Prednisone 20 MG TAB 2 TAB PO DAILY BRONCHITIS Review of Systems Review of Systems: A twelve point review of systems is unremarkable. 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 Home Smoking Status: Never Smoked ETOH Use: denies use Illicit Drug Use: denies illicit drug use Employment History Employment: Employed Profession/Employer works at [employer] in [place] Exam & Diagnostic Data Vital Signs and I&O Vital Signs Date Time Temp Pulse Resp B/P Pulse O2 O2 Flow FiO2 Ox Delivery Rate 02/22 0827 97.5 58 18 120/80 97 Room Air 02/21 2314 98.2 62 18 110/58 96 Room Air 02/21 1538 98.1 62 20 116/74 96 Room Air Intake & Output 02/22 1600 01/03 0800 02/22 0000 02/21 1600 02/21 0800 02/21 0000 Intake Total 980 240 700 480 60 Output Total Balance 980 240 700 480 60 Intake, IV 10 Intake, Oral 980 240 700 480 50 Number 1 Bowel Movements Patient 180 lb Weight Physical Exam: General: WD/ WN male in NAD: alert and oriented x 3 HEENT: NC/AT, PERRL, EOMI, clear oropharynx with mmm Neck: no JVD, no carotid bruit Heart: RRR w/o murmur Lungs: clear bilaterally ABdomen: soft, NT, +ve bowel sounds Extremities: no edema Diagnostic Data EKG Results sinus rhythm Assessment/Plan Assessment/Plan * This patient has symptoms that are hard to fit into a stroke syndrome. Nevertheless, he does have a midbrain lesion on his head CT. This may be an artifact and, if real, may be an old lesion that has nothing to do with his current symptoms. In consideration of his history of paroxysmal atrial fibrillation I would monitor him on telemetry and obtain an echocardiogram to observe for left atrial enlargement or intracardiac thrombus. An MRI will be useful to determine if the lesion observed on head CT is real. * This patient also has chest discomfort. I would risk stratify him with a treadmill nuclear stress test. This patient should be on aspirin and a statin. If A. Fib is discovered then he should be chronically anticoagulated. Consult Acknowledgment - Thank you for your consult request.
[2016-02-23] MEDS ORDERED: TOBRADEX EYE DRO5 ML (19:57)
[2016-02-23 23:00] VITALS: BP 112/72
--- NOTE | 2016-02-24 07:29 | PN- Housestaff ---
HUGO ROJAS 02/24/16 0728: Subjective Follow-up For: 1. Dizziness 2. Headache 3. GERD 4. History of paroxysmal atrial fibrillation Complaints: pain scale (0-10) Tele-Events Since Last Visit: Sinus bradycardia Sinus rhythm Rate 50-60 No acute events noticed on telemetry monitoring overnight Subjective: Patient was seen and examined this morning. He was alert awake and oriented to time place and person. No acute events noticed overnight. He does report dizziness this morning. However no loss of consciousness no syncopal episodes. He reported intermittent headaches, which is there since admission. 3 over 5 fronto-occipital region, nonradiating. Denied any chest pain, racing of heart, short of breath, cough, weakness or sensory changes, gait changes. No nausea vomiting abdominal pain, change in bladder or bowel habits. Vitals were stable. Afebrile. Heart rate 52, respiratory rate 18, blood pressure 112/72, saturating at 95% on room air Review of Systems Constitutional: Denies: see HPI. Objective Last 24 Hrs of Vital Signs/I&O Vital Signs Date Time Temp Pulse Resp B/P Pulse O2 O2 Flow FiO2 Ox Delivery Rate 02/23 0831 97.9 86 18 122/60 98 Room Air 02/22 2300 98.1 53 18 112/72 95 02/22 1530 98.1 63 20 118/68 98 Room Air Intake & Output 02/23 1600 02/23 0800 02/23 0000 Intake Total 600 240 480 Output Total Balance 600 240 480 Intake, Oral 600 240 480 Physical Exam General Appearance: Alert, Oriented X3, Cooperative, No Acute Distress Skin: No Rashes, No Breakdown HEENT: Atraumatic, Mucous Membr. moist/pink Neck: Supple, No JVD Lymphatic: Cervical nl Cardiovascular: Regular Rate, Normal S1, Normal S2, No Murmurs Lungs: Normal Air Movement Abdomen: Normal Bowel Sounds, Soft, No Tenderness Neurological: Strength at 5/5 X4 Ext, Normal Tone, Sensation Intact Extremities: No Clubbing, No Cyanosis, No Edema Vascular: Normal Pulses Current Medications: Current Medications Sig/Lissett Start time Last Medication Dose Route Stop Time Status Admin Acetaminophen 650 MG Q4P PRN 02/21 09 AC 02/21 PO 2050 Atorvastatin Calcium 40 MG DAILY@1700 02/20 210 AC 02/22 PO 170 Clopidogrel Bisulfate 75 MG DAILY 02/22 1000 AC 02/23 PO 0914 Heparin Sodium 5,000 UNIT Q8 02/21 1400 AC 02/23 (Porcine) SC 0602 Meclizine HCl 25 MG TID PRN 02/20 1700 AC 02/22 PO 1008 Tobramycin/ 1 GTT BID 02/22 2200 AC 02/23 Dexamethasone OPH 0914 Assessment/Plan Assessment: This is a 75-year-old gentleman with past medical history significant for paroxysmal atrial fibrillation, dyslipidemia, hyperthyroidism, GERD presented to the [facility] emergency department with chief complaint of dizziness, blurred vision, intermittent headache for 3 days. Vitals on admission afebrile, heart rate 82, respiratory rate 18, blood pressure 149/95, saturating at 98% on room air. Pertinent labs CBC normal, BEP normal, troponins negative on admission. EKG sinus rhythm, rate 60, PACs, QTC 394, no ST-T wave changes head ct IMPRESSION: A 1.0 x 1.2 cm focal region of hypoattenuation within the midbrain, suspicious for age-indeterminate ischemia. Otherwise, no acute intracranial hemorrhage, mass or mass effect or abnormal extra-axial fluid collections. 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 Otherwise normal MR appearance of the brain. Problem list 1. Dizziness 2. Headache 3. GERD 4. History of paroxysmal atrial fibrillation Dizziness and headache Patient presented to emergency department with generalized headache mostly occipital for 3 days. He reported ongoing dizziness for 3 days associated with spinning sensation of the room. Denied loss of consciousness, syncopal episodes , seizures. CAT scan head showed midbrain ischemia. No acute intracranial hemorrhage or mass. 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 Otherwise normal MR appearance of the brain. Denied any focal neurologic deficits on examination. * Admitted to telemetry for continuous monitoring * Monitor vitals closely * Maintain oxygen saturation above 92% * Frequent neuro checks * Ruled out TIA/stroke * Neurology was consulted * Patient was started on plavix and statin therapy * History of aspirin intolerance-gi upset * Meclizine as necessary for dizziness * Fall precautions * Passed bedside swallow evaluation * Will follow neurology recommendation * Continuous telemetry monitoring for any arrhythmias. * First set of troponin and EKG were negative * Serial EKG and troponins NEGATIVE * Carotid Doppler ultrasound- normal * Follow-up echocardiogram GERD Patient is on pantoprazole at home Patient is on naproxen for headaches Naproxen was discontinued here Paroxysmal atrial fibrillation Patient is in sinus rhythm Not on any home medications Not on anticoagulants [employer] on board follow up echo Full code DVT prophylaxis with subcutaneous heparin Regular diet Problem List: 1. CVA (cerebral vascular accident) Pain Ratin Pain Location: intermittent headaches Pain Goal: Remain pain free Pain Plan: tylinol Tomorrow's Labs & Rationales: none PONCE JIMENEZ,VEGA 02/24/16 0927: Attending MD Review Statement Attending Statement Attending MD Statement: examined this patient, discuss w/resident/PA/FLY WORKER, agreed w/resident/PA/FLY WORKER, reviewed EMR data (avail), discussed with nursing Attending Assessment/Plan: Patient is ambulating okay and he feels okay. He is concerned about his headache and the CT lesion. He is a 75-year-old male Arabic speaking he has a history of paroxysmal A. fib in 2006 and he was anticoagulated at that time and then no more anticoagulation. He came in with new onset headache and a CT showing an indeterminate lesion. I spoke to Dr. Rosen and the patient's daughter at length. Given the history of paroxysmal A. fib, obviously the biggest worry is whether he had a stroke and both Dr. Rosen and I felt more comfortable getting an MRI to make sure that the CT lesion was not artifact. In fact the daughter was quite concerned saying he's never complained of these kind of symptoms before. We are also repeating an echo and make sure there is no LV thrombus. If they're negative then we'll send him out on plavix (gi upset with asa), statin if applicable and outpatient follow-up.
[2016-02-24 08:31] VITALS: BP 122/60
--- NOTE | 2016-02-24 11:45 | MRI REPORT ---
EXAMINATION: MR BRAIN WITHOUT AND WITH CONTRAST CLINICAL INFORMATION: 65-year-old man with possible TIA and migrainous headache. Dizziness. COMPARISON: 02/21/[address] TECHNIQUE: MRI of the brain was obtained using routine sequences before and after the intravenous administration of 17 mL of OptiMARK. FINDINGS: Previously described findings on the patient's prior head CT have no obvious correlate on MR imaging and may simply reflect normal-appearing red nuclei. Assessment of intracranial flow voids raises the possibility of a 5 mm inferiorly projecting anterior communicating artery aneurysm extending downwards into the left side of the sella. No focal reduced diffusion is seen to suggest acute or subacute cerebral ischemia. No intracranial mass, intracerebral edema, intra-axial blood products, midline shift, or extra-axial collection is visualized. No pathologic enhancement is appreciated on postcontrast sequences. The ventricles and sulcal spaces appear normal. Mild mucosal thickening is noted in the ethmoid air cells. 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 Otherwise normal MR appearance of the brain.
--- NOTE | 2016-02-24 15:06 | PN- Cardiology ---
Subjective Subjective: * This patient has resolution of his symptoms. * Echo: normal EF with trace MR and TR with normal left atrial size. No thrombus is identified. * sinus rhythm * A stroke was not confirmed to be present on this patient's MRI. Objective Vital Signs and I&Os Vital Signs Date Time Temp Pulse Resp B/P Pulse O2 O2 Flow FiO2 Ox Delivery Rate 02/23 0731 97.9 86 18 122/60 98 Room Air 02/22 2300 98.1 53 18 112/72 95 02/22 1530 98.1 63 20 118/68 98 Room Air Intake & Output 02/23 1600 02/23 0800 02/23 0000 02/22 1600 02/22 0800 02/22 0000 Intake Total 600 240 480 980 240 700 Output Total Balance 600 240 480 980 240 700 Intake, Oral 600 240 480 980 240 700 Number 1 Bowel Movements Physical Exam: General: WD/ WN male in NAD: alert and oriented x 3 Neck: no JVD, no carotid bruit Heart: RRR w/o murmur Lungs: clear bilaterally Extremities: no edema Assessment/Plan Assessment/Plan * This patient has resolution of his bilateral hand paresthesia and a stroke was not confirmed to be present by MRI. He does have a small aneurysm which should be addressed by neurology to comment on its significance. * This patient appears to be in a stable sinus rhythm with no evidence of atrial fibrillation. There is no intracardiac thrombus. I would continue this patient on a platelet inhibitor. * Okay for discharge from a cardiac standpoint with follow up recommended in the office in one week. Continue telemetry? No
[2016-02-24 17:00] VITALS: BP 120/73
--- NOTE | 2016-02-25 08:57 | Discharge Summary ---
Visit Information Visit Dates Admission Date: 02/21/16 Discharge Date: 02/24/16 Hospital Course Course Attending Physician: PONCE JIMENEZ,VEGA Hall Primary Care Physician: ANGIE GARCIA APRN Other Care Providers: sports marketing coordinator- Dr Jessika Hernandez Neurologist-Dr. Jamar garcia Consulting Request: Consulting Specialty: Cardiology Hospital Course: This is a 75-year-old gentleman with past medical history significant for paroxysmal atrial fibrillation, dyslipidemia, hyperthyroidism, GERD presented to the emergency department with chief complaint of dizziness, blurred vision, intermittent headache for 3 days. Vitals on admission afebrile, heart rate 82, respiratory rate 18, blood pressure 149/95, saturating at 98% on room air. Pertinent labs CBC normal, BEP normal, troponins negative on admission. EKG sinus rhythm, rate 60, PACs, QTC 394, no ST-T wave changes head ct- A 1.0 x 1.2 cm focal region of hypoattenuation within the midbrain, suspicious for age-indeterminate ischemia. Otherwise, no acute intracranial hemorrhage, mass or mass effect or abnormal extra-axial fluid collections. 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 Otherwise normal MR appearance of the brain. Dizziness and intermittent headache(ruled out TIA/STROKE) Patient presented to emergency department with generalized headache mostly occipital for 3 days. He reported ongoing dizziness for 3 days associated with spinning sensation of the room. Denied loss of consciousness, syncopal episodes , seizures. -Serial EKG and troponins NEGATIVE. -Carotid Doppler ultrasound- normal -echocardiogram showed normal EF with trace MR and TR with normal left atrial size. No thrombus is identified. Admitted to telemetry for continuous monitoring. We Ruled out TIA/stroke. Neurology was consulted. Patient was started on plavix and statin therapy. History of aspirin intolerance-gi upset. Received Tylenol for headaches. He received meclizine as necessary for dizziness. Patient was advised to follow-up with neurologist regarding brain aneurysm and medication changes( As he was started on plavix and statins with out any stroke) . GERD Patient is on pantoprazole at home for gerd and on naproxen for headaches. Naproxen was discontinued here. Advised to take extended release tylinol for headaches. Remote history of Paroxysmal atrial fibrillation Patient is in sinus rhythm now. Not on any home medications. Not on anticoagulants. stable sinus rhythm with no evidence of atrial fibrillation. There is no intracardiac thrombus. Full code DVT prophylaxis with subcutaneous heparin Regular diet Complications: none Allergies: Coded Allergies: Penicillins (DIZZY, VOMITING 02/21/16) aspirin (GI UPSET 02/21/16) Significant Procedures: none Pertinent Lab Results: head ct- A 1.0 x 1.2 cm focal region of hypoattenuation within the midbrain, suspicious for age-indeterminate ischemia. Otherwise, no acute intracranial hemorrhage, mass or mass effect or abnormal extra-axial fluid collections. 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 Otherwise normal MR appearance of the brain. carotid doppler- 0-49% ICA stenosis bilaterally. Disposition Summary Disposition Principal Diagnosis: Posterior circulation TIA versus migrainous headache Additional Diagnosis: remote history of atrial fibrillation Discharge Disposition: home or self care Discharge Instructions General Discharge Information Code Status: Full Code Patient's Diet: as tolerated Patient's Activity: as tolerated Follow-Up Instructions/Appts: 1. Follow-up with primary care doctor in 1 week 2. Please have the follow up at the [facility] [place] neurology clinic with Kayli Wiley MD. 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 Patient was started on statins and Plavix in the hospital and continued on discharge. Advised him to follow-up with the neurologist regarding the medication changes. 3. Follow-up with your sports marketing coordinator- DR BACON in 1 week Medications at Discharge Discharge Medications: Stop taking the following medications: Prednisone (Prednisone) 20 MG TAB ORAL DAILY Qty = 8 Naproxen (Naproxen) 500 MG TABLET ORAL TWICE DAILY Qty = 60 Continue taking these medications: Pantoprazole Sodium (Pantoprazole Sodium) 40 MG TABLET.DR 1 Tablet ORAL DAILY Qty = 90 Comments: OMEPRAZOLE ADMINISTERED IN PLACE Last Taken:02/23/15 Time:7AM Tobradex (Tobradex Eye Drops) 0.3 %-0.1 % DROPS.SUSP TWICE DAILY Comments: Last Taken:02/23/15 Time:8AM Start taking the following new medications: Atorvastatin Calcium (Atorvastatin Calcium) 40 MG TABLET 1 Tablet ORAL DAILY Qty = 30 No Refills Comments: Last Taken:02/22/15 Time:5PM Clopidogrel Bisulfate (Plavix) 75 MG TABLET 1 Tablet ORAL DAILY Qty = 30 No Refills Comments: Last Taken:02/23/15 Time:9AM Meclizine HCl (Meclizine HCl) 25 MG TABLET 1 Tablet ORAL THREE TIMES DAILY as needed for VERTIGO Qty = 30 No Refills Comments: NOT TAKEN Copies To: ROSI JIMENEZ,KAYLI Madrigal; ANGIE GARCIA APRN
--- NOTE | 2016-02-25 15:09 | ECHOCARDIOGRAM REPORT ---
ADELE MARTINEZ Age: 75 : 1940 Gender: M Exam Date: 02/23/2016 16:58 Exam Location: 1 [address] Ht (in): 77 Wt (lb): 180 BSA: 2.10 BP: 129 / 80 Ordering Physician: CARINA WHITTEN MD Referring Physician: David Rosen MD, PhD Technologist: Myrna Capellan [facility] Room Number: 182 Indications: STROKE Rhythm: Sinus Technical Quality: Fair FINDINGS Left Ventricle Small left ventricular cavity. Mild concentric left ventricular hypertrophy. Normal left ventricular wall motion. Normal left ventricular ejection fraction visually estimated at > 65%. Abnormal relaxation filling pattern of the left ventricle for age (stage 1 diastolic dysfunction). Right Ventricle Normal right ventricular size and function. Right Atrium Normal right atrial size. Left Atrium Normal left atrial size. Mitral Valve Structurally normal mitral valve. Trace mitral regurgitation. Aortic Valve Trileaflet aortic valve. Mild aortic sclerosis. No aortic valve stenosis or regurgitation. Tricuspid Valve Structurally normal tricuspid valve. Mild tricuspid regurgitation. No evidence of pulmonary hypertension. Right ventricular systolic pressure estimated to be within the normal range at 23 mmHg. Pulmonic Valve Pulmonic valve not well visualized, grossly normal. Trace pulmonic regurgitation. Pericardium No pericardial effusion. Great Vessels Normal size aortic root. Normal size inferior vena cava. CONCLUSIONS Small left ventricular cavity. Mild concentric left ventricular hypertrophy. Normal left ventricular wall motion. Normal left ventricular ejection fraction visually estimated at > 65%. Abnormal relaxation filling pattern of the left ventricle for age (stage 1 diastolic dysfunction). Normal right ventricular size and function. Normal atrial size. Trace mitral regurgitation. Mild tricuspid regurgitation. No evidence of pulmonary hypertension. Trace pulmonic regurgitation. Guillermo Rosario M.D. (Electronically Signed) Final Date: 25 February 2016 15:08 MEASUREMENTS (Male / Female) Normal Values 2D ECHO LV Diastolic Diameter PLAX 3.2 cm 4.2 - 5.9 / 3.9 - 5.3 cm LV Systolic Diameter PLAX 1.9 cm 2.1 - 4.0 cm LV Fractional Shortening PLAX 40.6 % 25 - 46 % LV Ejection Fraction 2D Teich 72.7 % IVS Diastolic Thickness 1.2 cm LVPW Diastolic Thickness 1.2 cm LV Relative Wall Thickness 0.8 RV Internal Dim ED PLAX 2.7 cm 1.9 - 3.8 cm LVOT Diameter 2.2 cm Aortic Root Diameter 3.3 cm LA Systolic Diameter LX 3.2 cm 3.0 - 4.0 / 2.7 - 3.8 cm LA Volume 30.0 cm 18 - 58 / 22 - 52 cm Ascending Aorta Diameter 3.2 cm DOPPLER AV Peak Velocity 141.0 cm/s AV Peak Gradient 8.0 mmHg AV Mean Velocity 96.8 cm/s AV Mean Gradient 4.0 mmHg AV Velocity Time Integral 29.9 cm LVOT Peak Velocity 132.0 cm/s LVOT Peak Gradient 7.0 mmHg LVOT Mean Velocity 82.8 cm/s LVOT Mean Gradient 3.0 mmHg LVOT Velocity Time Integral 24.9 cm LVOT Stroke Volume 94.7 cm AV Area Cont Eq vti 3.2 cm AV Area Cont Eq pk 3.6 cm MV Peak Velocity 82.7 cm/s MV Peak Gradient 2.7 mmHg MV Mean Velocity 49.5 cm/s MV Mean Gradient 1.0 mmHg Mitral E Point Velocity 73.1 cm/s Mitral A Point Velocity 79.0 cm/s Mitral E to A Ratio 0.9 MV PHT Velocity 82.4 cm/s MV Deceleration [facility] 296.0 cm/s MV Pressure Half Time 83.5 ms MV Area PHT 2.6 cm MV Deceleration Time 229.0 ms TR Peak Velocity 211.0 cm/s TR Peak Gradient 17.8 mmHg Right Atrial Pressure 5.0 mmHg Pulmonary Artery Systolic Pressu 22.8 mmHg Right Ventricular Systolic Press 22.8 mmHg PV Peak Velocity 96.5 cm/s PV Peak Gradient 3.7 mmHg PV Mean Velocity 60.2 cm/s PV Mean Gradient 2.0 mmHg PV Velocity Time Integral 17.3 cm LV E' Lateral Velocity 12.2 cm/s Mitral E to LV E' Lateral Ratio 6.0 LV E' Septal Velocity 9.8 cm/s Mitral E to LV E' Septal Ratio 7.5
== END 2016-02-24 16:30 | DRG 54 ==
LOC: ERH 13:47 → 1NO 16:14 → ERHI 16:14 → 1NO 17:24
PROVIDERS: Dermatology; Physician Assistant Medical; ADMIT Internal Medicine
DX: R51 Headache (principal); H53.8 Other visual disturbances; I10 Essential (primary) hypertension; I48.91 Unspecified atrial fibrillation; I48.0 Paroxysmal atrial fibrillation; E78.5 Hyperlipidemia, unspecified; E05.90 Thyrotoxicosis, unspecified without thyrotoxic crisis or storm; K21.9 Gastro-esophageal reflux disease without esophagitis
CPT/HCPCS: 1NP; 1NSP; 70552; 70553; 82436; 93005; 93010; 93306; A9579; J1644; J3490